=== PATIENT | male | born 1995 | race American Indian/Alaskan Native ===

== ENCOUNTER 2017-12-02 10:31 | Emergency (ER) | payer OTHER ==
[2017-12-02 10:48] VITALS: BP 116/68
[2017-12-02] MEDS ORDERED: ZITHROMAX PO ONE (11:18)
[2017-12-02] MEDS ORDERED: ROCEPHIN IM ONE (11:18)
[2017-12-02] MEDS ORDERED: XYLOCAINE 1% MPF 5 mL INFILTRATI ONE (11:18)
--- NOTE | 2017-12-02 11:25 | Emergency Department Report ---
HPI - General Chief Complaint: Medical Clearance Time Seen by Provider: 12/02/17 11:12 - HPI HPI: Room 29 The patient is a 21-year-old male presenting with a chief complaint of penile pain and discharge. The patient states for the past 7 days he's had penile discharge and dysuria. She states this penile discharges tena in color. The patient states his urine is also dark. Patient denies hematuria or fever. Patient states he is not aware of any of his sexual partners having similar symptoms Location: Penis Duration: One week Quality: Burning Severity: Moderate Modifying factors: [see above] Context: [see above] Mode of transportation: Unknown ED Past Medical Hx - Past Medical History Previous Medical History?: No - Surgical History Past Surgical History?: No - Family History Family history: no significant - Social History Smoking Status: Never Smoker Substance Use Type: None (denies illicit drug use) - Medications Home Medications: Home Medications Medication Instructions Recorded Confirmed Last Taken Type Ciprofloxacin HCl [Ciprofloxacin 500 mg PO BID #20 tablet 12/02/17 Unknown Rx TAB] Phenazopyridine [Pyridium] 200 mg PO TID #6 tab 12/02/17 Unknown Rx ED Review of Systems ROS: Stated complaint: STD CHECK Other details as noted in HPI Constitutional: no symptoms reported Eyes: denies: eye pain ENT: denies: throat pain Respiratory: no symptoms reported Cardiovascular: denies: chest pain Endocrine: no symptoms reported Gastrointestinal: denies: abdominal pain Genitourinary: dysuria, discharge Musculoskeletal: denies: back pain Neurological: denies: headache Physical Exam - Physical Exam Vital Signs: Vital Signs 12/02/17 10:43 Temperature 98.8 F Pulse Rate 65 Respiratory 16 Rate Blood Pressure 116/68 O2 Sat by Pulse 100 Oximetry Physical Exam: GENERAL: The patient is well-developed well-nourished male sitting in chair not appearing to be in acute distress. [] HEENT: Normocephalic. Atraumatic. Extraocular motions are intact. Patient has moist mucous membranes. NECK: Supple. Trachea midline CHEST/LUNGS: Clear to auscultation. There is no respiratory distress noted. HEART/CARDIOVASCULAR: Regular. There is no tachycardia. There is no gallop rub or murmur. ABDOMEN: Abdomen is soft, nontender. Patient has normal bowel sounds. There is no abdominal distention. SKIN: There is no rash. There is no edema. There is no diaphoresis. NEURO: The patient is awake, alert, and oriented. The patient is cooperative. The patient has normal speech MUSCULOSKELETAL: There is no evidence of acute injury. ED Course Vital Signs 12/02/17 10:43 Temperature 98.8 F Pulse Rate 65 Respiratory 16 Rate Blood Pressure 116/68 O2 Sat by Pulse 100 Oximetry ED Medical Decision Making - Lab Data Laboratory Tests 12/02/17 11:26 Urine Color [place] Urine Turbidity Cloudy Urine pH 7.0 Ur Specific [place] 1.023 Urine Protein 100 mg/dl Urine Glucose (UA) Neg Urine Ketones Tr Urine Blood Sm Urine Nitrite Pos Urine Bilirubin Neg Urine Urobilinogen 4.0 Ur Leukocyte Esterase Lg Urine WBC (Auto) > 182.0 H Urine RBC (Auto) 40.0 Urine WBC Clumps Few Urine Mucus 1+ - Differential Diagnosis urethritis, UTI, cystitis, Critical care attestation.: If time is entered above; I have spent that time in minutes in the direct care of this critically ill patient, excluding procedure time. ED Disposition Clinical Impression: Urethritis, UTI (urinary tract infection) Disposition: - TO HOME OR SELFCARE Is pt being admited?: No Does the pt Need Aspirin: No Condition: Stable Instructions: Nonspecific Urethritis in Men (ED) Additional Instructions: Return to the emergency department immediately should you develop worsening symptoms, fever, inability to tolerate food or liquid or any other concerns. Prescriptions: Ciprofloxacin HCl [Ciprofloxacin TAB] 500 mg PO BID #20 tablet Phenazopyridine [Pyridium] 200 mg PO TID #6 tab Referrals: PRIMARY CAREMD [Primary Care Provider] - 3-5 Days [facility] [Outside] - 3-5 Days Forms: STI Treatment and Prevention Time of Disposition: 12:22
[2017-12-02 12:04] LABS: Bilirubin,Urine NEG (Negative); Blood,Urine SM (Negative); Color,Urine Amber (Yellow); Mucus,Urine 1+ /HPF
[2017-12-02 12:05] LABS: WBC,Urine > 182.0 /HPF (0.0-6.0)
== END 2017-12-02 12:31 | disposition home or self-care (01) ==
LOC: ED 10:31
DX: N34.2 Other urethritis (principal)
CPT/HCPCS: 81001; 87591; 96372; 99283; J0696